=== PATIENT | female | born 1960 | race African-American/Black ===

== ENCOUNTER → 2021-01-12 | Day surgery (SDC) | payer OTHER | END | disposition home or self-care (01) | LOC: JRADUS-SUR 09:06 | PROVIDERS: ATTEND Internal Medicine | PROC: 0H9T3ZX Drainage of Right Breast, Percutaneous Approach, Diagnostic (ICD-10-PCS; principal; 2021-01-12) | DX: N60.01 Solitary cyst of right breast (principal); D24.1 Benign neoplasm of right breast | CPT/HCPCS: 19083; 19084; 76942-TC; 77065-TC; 87899; A4648 ==

== ENCOUNTER 2021-03-22 04:33 | Day surgery (SDC) | payer OTHER ==
[2021-03-21 16:06] VITALS: BMI 30.8
[2021-03-22] MEDS ORDERED: LIDOCAINE HCL 1%, 10 MG/ML (20ML VIAL) ONE ×2 (10:08→10:26)
[2021-03-22] MEDS ORDERED: MIDAZOLAM HCL 2 MG/2 ML SINGLE DOSE VIAL ONE (10:53)
[2021-03-22] MEDS ORDERED: LIDOCAINE HCL 1%, 10 MG/ML (20ML VIAL) INF ONE (11:21)
[2021-03-22] MEDS ORDERED: PROPOFOL 20 ML ONE (11:24)
[2021-03-22] MEDS ORDERED: DEXAMETHASONE SOD PHOSPHATE 4 MG/1 ML VIAL ONE (11:24)
[2021-03-22] MEDS ORDERED: ONDANSETRON 4 MG/2 ML VIAL ONE (11:24)
[2021-03-22] MEDS ORDERED: LIDOCAINE HCL/PF 2% SDV 5ML VIAL ONE (11:24)
[2021-03-22] MEDS ORDERED: oxyCODONE HCL 5 MG TABLET ONE (14:52)
[2021-03-22 17:30] VITALS: BP 117/58; PULSE 69; TEMP 97.8
== END 2021-03-22 15:35 | disposition home or self-care (01) ==
LOC: JASU-SURG 04:33
PROVIDERS: ATTEND Surgery
PROC: 0HBT0ZZ Excision of Right Breast, Open Approach (ICD-10-PCS; principal; 2021-03-22 11:00)
DX: D24.1 Benign neoplasm of right breast (principal); I10 Essential (primary) hypertension; E11.9 Type 2 diabetes mellitus without complications; Z79.4 Long term (current) use of insulin
CPT/HCPCS: 82962; 88307-TC